=== PATIENT | female | born 1980 | race Asian ===

== ENCOUNTER 2018-01-29 00:05 | Inpatient (IN) | payer SELFPAY ==
[~2018-01-29] VITALS: Ht 157.5 cm; Wt 59.0 kg
[2018-01-29] MEDS ORDERED: CITRIC ACID/SODIUM CITRATE 30 ML UDC PO ONE (00:55)
[2018-01-29] MEDS ORDERED: LACTATED RINGERS 1,000 ML IV SCH (00:55)
[2018-01-29 01:00] VITALS: BP 118/76
[2018-01-29 01:42] LABS: BASOPHILS # (AUTO) 0.1 K/uL (0.00-0.22); BASOPHILS % (AUTO) 0.9 % (0.0-2.0); EOSINOPHILS # (AUTO) 0.1 K/uL (0-0.4); EOSINOPHILS % (AUTO) 1.1 % (0.0-4.0); HEMATOCRIT 36.5 % (36-48); HEMOGLOBIN 12.2 g/dL (12.0-16.0); LYMPHOCYTES # (AUTO) 1.2 K/uL (2.5-16.5); MEAN CORPUSCULAR HEMOGLOBIN 32 pg (27-31); MEAN CORPUSCULAR HGB CONC 33 g/dL (33-37); MEAN CORPUSCULAR VOLUME 97 fL (80-94); MONOCYTES # (AUTO) 0.5 K/uL (0.8-1.0); MONOCYTES % (AUTO) 6.8 % (1.7-9.3); NEUTROPHILS # (AUTO) 4.9 K/uL (1.8-7.7); NEUTROPHILS % (AUTO) 73.2 % (42.2-75.2); PLATELET COUNT (AUTO) 174 K/uL (140-450); RED BLOOD CELL COUNT(AUTO) 3.76 MIL/uL (4.20-5.40); RED CELL DISTRIBUTION WIDTH 13.8 % (11.6-13.7); WHITE BLOOD COUNT (AUTO) 6.8 K/uL (4.8-10.8)
[2018-01-29 02:10] LABS: APPEARANCE,URINE CLEAR (CLEAR); BILIRUBIN,URINE NEGATIVE (NEGATIVE); BLOOD, URINE TRACE-L (NEGATIVE); COLOR,URINE YELLOW (YELLOW); LEUKOCYTE ESTERASE ,URINE NEGATIVE (NEGATIVE); NITRITE, URINE NEGATIVE (NEGATIVE); UGLUCOSE NEGATIVE (NEGATIVE)
[2018-01-29 02:34] LABS: RBC,URINE 0-5 (RARE) /HPF (0-5); WBC,URINE 0-5 (RARE) /HPF (0-5)
[2018-01-29] MEDS ORDERED: INFLUENZA VIRUS VACCINE QUAD 0.5 ML SYR IMVAC SCH (03:20)
[2018-01-29] MEDS ORDERED: CALCIUM (03:22)
[2018-01-29] MEDS ORDERED: FERR-252 PO (03:22)
[2018-01-29] MEDS ORDERED: CITRIC ACID/SODIUM CITRATE 30 ML UDC ONE (05:12)
[2018-01-29] MEDS ORDERED: ceFAZolin 1,000 MG VIAL ONE (05:12)
[2018-01-29] MEDS ORDERED: ePHEDrine 50 MG/ML VIAL IV ONE (05:50)
[2018-01-29] MEDS ORDERED: ONDANSETRON 4 MG/2 ML VIAL IVP ONE (05:50)
[2018-01-29] MEDS ORDERED: MIDAZOLAM 2 MG/2 ML VIAL ONE (05:59)
[2018-01-29] MEDS ORDERED: fentaNYL 0.05 MG/ML VIAL ONE (06:00)
[2018-01-29] MEDS ORDERED: KETAMINE 500 MG/5 ML VIAL ONE (06:00)
[2018-01-29] MEDS ORDERED: MORPHINE PRES FREE 10 MG/10 ML AMP IV ONE (06:00)
[2018-01-29] MEDS ORDERED: OXYTOCIN 10 UNITS/ML VIAL ONE ×2 (06:05→23:17)
[2018-01-29] MEDS ORDERED: TRIAMCINOLONE 10 MG/ML 5ML VIAL ONE (06:05)
[2018-01-29] MEDS ORDERED: ceFAZolin 1,000 MG VIAL IVP ONE (06:10)
--- NOTE | 2018-01-29 06:44 | NUR ---
PATIENT HAS BEEN SCREENED AND CATEGORIZED LOW NUTRITION RISK. PATIENT WILL BE SEEN WITHIN 7 DAYS OF ADMISSION. 02/04/18 ESTEFANI LOVETT MS, RDN
[2018-01-29] MEDS ORDERED: oxyCODONE/APAP 5/325 MG 1 TAB TAB PO PRN (06:45)
[2018-01-29] MEDS ORDERED: KETOROLAC 30 MG/ML VIAL IVP PRN (06:45)
[2018-01-29] MEDS ORDERED: ONDANSETRON 4 MG/2 ML VIAL IVP PRN (06:45)
[2018-01-29] MEDS ORDERED: TRIMETHOBENZAMIDE 200 MG/2 ML SYR IM PRN (06:45)
[2018-01-29] MEDS ORDERED: MEASLES, MUMPS, AND RUBELLA 1 VIAL SQVAC PRN (06:45)
[2018-01-29] MEDS ORDERED: METHYLERGONOVINE 0.2 MG/ML AMP IM PRN (06:45)
[2018-01-29] MEDS ORDERED: HYDROcodone/APAP 5/325 MG 1 TAB TAB PO PRN (06:45)
[2018-01-29] MEDS ORDERED: diphenhydrAMINE 50 MG/ML VIAL IVP PRN (06:45)
[2018-01-29] MEDS ORDERED: ONDANSETRON 4 MG/2 ML VIAL ONE (06:46)
[2018-01-29] MEDS ORDERED: OXYTOCIN 20 UNITS/LR PREMIX 1,000 ML IV ONE (06:46)
[2018-01-29] MEDS ORDERED: diphenhydrAMINE 50 MG/ML VIAL ONE (06:46)
[2018-01-29 09:55] LABS: RAPID PLASMA REAGIN NON-REACTIVE (Non Reactiv)
--- NOTE | 2018-01-29 15:45 | NUR ---
PT WAS BREAST FEEDING BABY COULD NOT PERFORM IS
[2018-01-29] MEDS: OXYTOCIN 20 UNITS in LACTATED RINGERS 1,000 ML IV SCH ×2 (15:56→23:59)
[2018-01-29] MEDS ORDERED: TEMAZEPAM 15 MG CAP PO PRN (20:00)
[2018-01-29] MEDS: DOCUSATE SOD/SENNA 50/8.6 MG 1 TAB PO SCH (21:00)
[2018-01-30 06:35] LABS: BASOPHILS # (AUTO) 0.1 K/uL (0.00-0.22); BASOPHILS % (AUTO) 0.6 % (0.0-2.0); EOSINOPHILS % (AUTO) 0.2 % (0.0-4.0); HEMATOCRIT 30.4 % (36-48); HEMOGLOBIN 10.3 g/dL (12.0-16.0); LYMPHOCYTES # (AUTO) 0.8 K/uL (2.5-16.5); LYMPHOCYTES % (AUTO) 8.6 % (20.5-51.1); MEAN CORPUSCULAR HEMOGLOBIN 33 pg (27-31); MEAN CORPUSCULAR HGB CONC 34 g/dL (33-37); MEAN CORPUSCULAR VOLUME 97 fL (80-94); MONOCYTES # (AUTO) 0.4 K/uL (0.8-1.0); MONOCYTES % (AUTO) 4.2 % (1.7-9.3); NEUTROPHILS # (AUTO) 7.6 K/uL (1.8-7.7); NEUTROPHILS % (AUTO) 86.4 % (42.2-75.2); PLATELET COUNT (AUTO) 173 K/uL (140-450); RED BLOOD CELL COUNT(AUTO) 3.13 MIL/uL (4.20-5.40); RED CELL DISTRIBUTION WIDTH 14.1 % (11.6-13.7); WHITE BLOOD COUNT (AUTO) 8.9 K/uL (4.8-10.8)
[2018-01-30] MEDS: SIMETHICONE 80 MG TAB.CHEW PO PRN (17:12)
[2018-01-30] MEDS: IBUPROFEN 800 MG TAB PO PRN (17:12)
[2018-01-30] MEDS: DOCUSATE SOD/SENNA 50/8.6 MG 1 TAB PO SCH (21:10)
[2018-01-31] MEDS: SIMETHICONE 80 MG TAB.CHEW PO PRN (03:34)
[2018-01-31] MEDS: IBUPROFEN 800 MG TAB PO PRN (19:05)
[2018-01-31] MEDS: DOCUSATE SOD/SENNA 50/8.6 MG 1 TAB PO SCH (20:52)
== END 2018-02-01 14:30 | disposition home or self-care (01) | DRG 766 ==
LOC: MLD 00:05 → MFCC 08:37
PROVIDERS: ADMIT Obstetrics & Gynecology; ATTEND Obstetrics & Gynecology
PROC: 10D00Z1 Extraction of Products of Conception, Low, Open Approach (ICD-10-PCS; principal; 2018-01-29 06:00)
PROC: 3E0234Z Introduction of Serum, Toxoid and Vaccine into Muscle, Percutaneous Approach (ICD-10-PCS; 2018-01-31)
PROC: 3E0234Z Introduction of Serum, Toxoid and Vaccine into Muscle, Percutaneous Approach (ICD-10-PCS; 2018-01-31)
PROC: 3E0134Z Introduction of Serum, Toxoid and Vaccine into Subcutaneous Tissue, Percutaneous Approach (ICD-10-PCS; 2018-01-31)
DX: O34.211 Maternal care for low transverse scar from previous cesarean delivery (principal); Z23 Encounter for immunization; Z37.0 Single live birth; Z3A.39 39 weeks gestation of pregnancy
CPT/HCPCS: 36415; 81001; 85025; 86592; 86886; 86900; 86901; 90658; 90707; 90715; J0690; J1200; J2250; J2270; J2405; J2590; J3010; J3301; J7060; J7120